=== PATIENT | female | born 1960 | race Two or more races ===

== ENCOUNTER 2020-05-14 11:59 | Emergency (ER) | payer MEDICAID ==
[~2020-05-14] VITALS: Ht 154.9 cm; Wt 90.7 kg
[2020-05-14 12:00] VITALS: BP 129/98
--- NOTE | 2020-05-14 12:00 | NUR ---
ED Nurse Note: Pt brought in by ambulance from home d/t left leg varicose vein rupture while in the shower. Pt was able to stop the bleeding by the time [facility] arrived at her hourse. Per EMS, about 300 ml blood loss on the floor. EMS also reports drop in SBP to 90s and HR of 130s. 200 ml NS administered by EMS and vitals stable as documented upon arrival. Respirations even and unlabored on room air. A+OX4, speaking in full sentences. No active bleeding noted
--- NOTE | 2020-05-14 12:08 | Emergency Room Report ---
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 Pt was able stop bleeding on scene but called 911 for further evaluation. Paramedics applied compression dressing with complete hemostasis. Bleeding is currently controlled. Pt denies trauma, injury, laceration, numbness , tingling, HEBERT, weakness, CP, SOB, n/v/d, melena, or hematochezia or other complaints. According to EMS, initial blood pressure was low but responded after IV fluids. Patient denies complaint at this time. She states she does not have hx for previous blood transfusion. Tdap is UTD. The patient's symptoms were gradual onset, severity was moderate, duration since 1 day. Quality: bleeding Severity: mild Past medical history: Denies Past surgical history: Denies Smoking: Denies Alcohol use: Denies Drug use: Denies Review of systems: CONST: No fevers or chills, No night sweats PULMONARY: No productive cough, No shortness of breath CARDIAC: No chest pain, No palpitations GI: No vomiting, No diarrhea , No melena_or_BRBPR : No dysuria, No hematuria, No discharge NEURO: No new_focal_weakness_or_numbness, No confusion, No vision changes SKIN: bleeding varicose vein 14 point Review of Systems is otherwise negative except per HPI Physical Exam: GENERAL: Awake_alert_ nontoxic, no acute distress Spo2 99% on RA -normal EYES: Extraocular muscles are intact. Conjunctivae clear. Lids without swelling ENT: External nose and ear normal_in_appearance. Oropharynx clear. Head_ atraumatic, Moist_oral_mucosa NECK: No JVD. No meningismus. No thyromegaly. Supple. Trachea midline RESP: Normal respiratory effort. Symmetric rise. No stridor. Clear_to_ auscultation_No_rales_No_wheezes CARDIAC: Regular rate and regular rhythm on_auscultation No_significant pedal edema. ABDOMEN: Soft. Nondistended. Nontender_No_rebound_or_guarding. MSK: Normal muscle tone, without rigidity. Extremities without asymmetric deformity or swelling. SKIN: Warm and dry. No visible cyanosis or pallor LLE medial leg pinpoint varicose vein. No active bleeding or hemorrhage. No cellulitis. No laceration Normal ROM. No joint swelling. No deformity. Compartments are soft and compressible. NEUROLOGIC: Alert, oriented x3. Motor_and_sensation_grossly_intact. No truncal ataxia. Gait_normal Psych: Normal mood and affect, normal judgment and insight - COORDINATION OF CARE Case was discussed with: Patient , Patient's Family Any labs that were ordered were interpreted as part of the medical decision making: Medical Decision Making/Plan: DDx: bleeding varicose vein vs abrasion vs laceration Patient is well-appearing and hemodynamically stable. She has never been hypotensive in ED. On examination of the lower extremity, there are no signs of trauma, however patient has small pinpoint varicose vein which has already developed clot. No active bleeding noted. Hemostasis was adequately achieved prior to arrival by compression bandage applied by EMS. Patient displays no signs of hemodynamic instability, active hemorrhage, or ongoing issue at this time. Wound was cleaned and dressed. Surgicel and bacitracin were applied. Tdap is already up-to-date. Wound was rewrapped with Kerlix, Ashish bandage. No rebleeding has occurred here in the emergency department. I educated the patient on the current treatment plan including the risks, benefits, and alternatives. I also discussed the extent and limitations of the current evaluation. The patient expressed understanding and agreement with plan. I recommended PMD follow-up within 1-2 days with PMD for wound check. Also instructed patient to keep his compression dressing clean, dry, intact for 1 to 2 days until seen again by his primary care doctor. Also advised that the patient return to the Emergency Department as soon as possible if they experience any new, persistent, or worsening symptoms. Procedure: LLE Ashish wrap: Ashish wrap applied to L leg Applied by tech with direct supervision by me. Reassessed extremity following splint application. Neurovascular intact pre and post procedure. 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 Nursing Documentation-PMH Past Medical History: No History, Except For Hx Hypertension: Yes Physical Exam Vital Signs Date Time Temp Pulse Resp B/P (MAP) Pulse Ox O2 Delivery O2 Flow Rate FiO2 05/14/20 11:55 97.9 84 16 135/102 (113) 100 Room Air Sp02 EP Interpretation: reviewed, normal Medical Decision Making Diagnostic Impression: Primary Impression: Bleeding from varicose vein Reevaluation Time: : Last Vital Signs Date Time Temp Pulse Resp B/P (MAP) Pulse Ox O2 Delivery O2 Flow Rate FiO2 05/14/20 11:55 97.9 84 16 135/102 (113) 100 Room Air Status: improved Disposition: HOME, SELF-CARE Admit Decision Time: 13:02 Condition: Stable Additional Instructions: Instructions for patient/enterprise solutions architect: Follow up with your physician in 1-2 DAYS FOR WOUND CHECK. Keep dressing clean and dry until you go for your wound check in 1-2 days. Follow-up with your doctor sooner if your condition requires a more timely clinical reevaluation. Return to the emergency department immediately if you feel that your condition is worsening or if you have any new or concerning symptoms. Review your discharge instructions and take any prescriptions given as instructed. Lauren Kelly D.O. May 14, 2020 12:08
[2020-05-14 12:44] LABS: ANION GAP 11 mmol/L (5-15); BASOPHILS % (AUTO) 0.8 % (0.0-2.0); BLOOD UREA NITROGEN 10 mg/dL (7-18); CALCIUM 8.6 MG/DL (8.5-10.1); CARBON DIOXIDE 24 MMOL/L (21-32); CHLORIDE 103 MMOL/L (98-107); CREATININE 1.1 MG/DL (0.55-1.30); EOSINOPHILS % (AUTO) 1.6 % (0.0-3.0); HEMATOCRIT 35.3 % (37.0-47.0); HEMOGLOBIN 11.5 G/DL (12.0-16.0); LYMPHOCYTES % (AUTO) 34.8 % (20.0-45.0); MEAN CORPUSCULAR VOLUME 96 FL (80-99); MONOCYTES % (AUTO) 5.1 % (1.0-10.0); NEUTROPHILS % (AUTO) 57.7 % (45.0-75.0); PLATELET COUNT 260 K/UL (150-450); POTASSIUM 4.1 MMOL/L (3.5-5.1); RED BLOOD COUNT 3.69 M/UL (4.20-5.40); RED CELL DISTRIBUTION WIDTH 11.6 % (11.6-14.8); SODIUM 138 MMOL/L (136-145); WHITE BLOOD COUNT 13.2 K/UL (4.8-10.8)
[2020-05-14 12:47] LABS: INR 1.1 (0.9-1.1)
[2020-05-14 12:48] LABS: ALANINE AMINOTRANSFERASE 16 U/L (12-78); ALBUMIN 3.4 G/DL (3.4-5.0); ALBUMIN/GLOBULIN RATIO 1.1 (1.0-2.7); ALKALINE PHOSPHATASE 104 U/L (46-116); ASPARTATE AMINO TRANSFERASE 22 U/L (15-37); BILIRUBIN,TOTAL 0.2 MG/DL (0.2-1.0)
[2020-05-14] MEDS ORDERED: Surgicel 4in x 8in TOPIC ONE (13:00)
[2020-05-14] MEDS ORDERED: Polysporin Oint 15gm TOPIC SCH (13:00)
[2020-05-14 13:45] VITALS: BP 124/84
--- NOTE | 2020-05-14 13:45 | NUR ---
ER DISCHARGE NOTE: Patient is cleared to be discharged per ERMD, pt is aox4, on room air, with stable vital signs. pt was given dc and prescription instructions, pt was able to verbalize understanding, pt id band and iv site removed without complications. pt is able to ambulate with steady gait. pt took all belongings.
== END 2020-05-14 13:45 | disposition home or self-care (01) ==
LOC: EDBD 11:59 → EMR 12:36
DX: I83.892 Varicose veins of left lower extremity with other complications (principal); I10 Essential (primary) hypertension
CPT/HCPCS: 36415; 80053; 85025; 85610; 86850; 86900; 86901; Z7502; 99284